=== PATIENT | male | born 1955 | race Caucasian/White ===

== ENCOUNTER 2025-08-21 12:18 | Emergency (ER) | payer MEDICARE, OTHER, SELFPAY ==
[2025-08-21 12:31] VITALS: BP 167/65; PULSE 66; O2SAT 97
--- NOTE | 2025-08-21 12:31 | XR_ITS ---
FINAL REPORT CLINICAL HISTORY: Left foot ax injury FINDINGS: LEFT FOOT Three views were obtained. There is no fracture or dislocation. The joint spaces appear normal. No soft tissue abnormality is identified. There is a bandage along the medial aspect of the foot. No foreign body is identified. IMPRESSION: No acute process. Reviewed, Interpreted and Dictated by Tunde Reyna MD Transcribed by Anna Fraire Authenticated and [facility]
[2025-08-21 12:34] VITALS: BP 167/65; PULSE 67; RESP 16; TEMP 36.7; O2SAT 98; BMI 30.5
--- NOTE | 2025-08-21 12:45 | ED_ITS ---
<Statement entered by Arben Robb DO - 08/22/25 07:23> I was consulted by the SHER, and we discussed the complexity of problems being addressed. I approved the treatment and management plan for this patient's care in the emergency department, thus performing a substantive portion of the medical decision making. Agree with SHER note above. I personally interpreted the patient's foot x-ray and I do not appreciate any bony abnormality or fracture. There is also no foreign body noted on my read. I have followed up the official radiology read and it also shows no acute fracture or malalignment. Patient was ultimately discharged home with Bactrim and Keflex given his risk factors. Return precautions have been given. He understands follow-up for suture removal. Arben Robb DO Discharge Plan Disposition Patient Disposition: Home, Self-Care Condition: Good Prescriptions Prescriptions: New sulfamethoxazole-trimethoprim [Bactrim DS] 800-160 mg tablet 1 tab PO BID 5 Days Qty: 10 0RF cephalexin 500 mg capsule 500 mg PO Q6H 5 Days Qty: 20 0RF Referrals Follow up/Referrals: Provider,Referral, MD [Primary Care Provider, Medical] - See instructions Activity Restrictions/Add. Instructions Additional Instructions/Restrictions: Please return to the emergency department with any worsening signs or symptoms. Please monitor for any signs of infection. We will call you with results of your x-ray if actionable. No news is good news. Please take your medications as prescribed for the next 5 days with food. Please return to the emergency department or to your family doctor's office for removal of your sutures in 7 to 10 days, please keep the area clean and dry. Clinical Impressions Clinical Impression: Laceration of dorsum of left foot Instructions Patient Instructions: DI for Laceration Repair Print Language Print Language: Setswana Discharge ED Provider: Arben Robb General Adult HPI General Chief complaint: Wound/Laceration Stated complaint: AO 08/21/25 @1100 Hit L Foot with Axe Time Seen by Provider: 08/21/25 12:25 Mode of Arrival: Ambulatory Source of Information: Patient Description of Symptoms (Recalled from ER Triage Doc. by RN): Patient presents to ED for laceration to left foot. Patient reports he was cutting wood with a dull axe. Bleeding controlled on ED arrival. History of Present Illness HPI narrative: 70-year-old male presents the emergency department with a left foot laceration/injury with sharp/blunt object, patient tells me that around 45 minutes to an hour prior to arrival he was chopping wood , with an ax, he describes it as a dull lax , he states he is wearing flip-flops , when he struck his left foot, sustaining a laceration to the dorsal medial aspect of the left foot, bleeding controlled upon arrival in the ED. Patient is unsure of tetanus prophylaxis, patient denies any fever chills chest pain shortness of breath, has been able to ambulate on the affected extremity, denies any other acute symptomatology. Patient is a former smoker, former alcohol use, denies any illicit drug use. 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 Initial triage vitals unremarkable. Please note that above description of symptoms, in this electronic medical record under categorization of recalled from ER triage doctor by RN are reflective of an initial nursing assessment, however, is not reflective of my full history and physical exam that was personally taken and clarified. Consequentially, this preceding description of symptoms, which may include the patient's categorized chief complaint in the EMR, do not reflect my personal clinical impression, and the ultimate description of history of present illness and patient stated complaints should be deferred to this section of the note. Unless stated otherwise or congruent with this section of the note, additional signs, symptoms, or incongruence should be interpreted as inaccurate with my clinical impression. Onset (ago): hour(s) Related Data Previous Rx's ?Medication ?Instructions ?Recorded cephalexin 500 mg capsule 500 mg PO Q6H 5 days #20 cap s 08/21/25 sulfamethoxazole 800 1 tab PO BID 5 days #10 tabs 08/21/25 mg-trimethoprim 160 mg tablet (Bactrim DS) Allergies Allergy/AdvReac Type Severity Reaction Status Date / Time empagliflozin (From Allergy Unknown Verified 08/21/25 12:53 Jardiance) allergy reaction [facility] Disclaimer: The information contained in this section may have been updated after the patient was seen, as this information can be updated by other users. Social History (Updated 08/21/25 @ 13:31 by MIMA Lauren) Smoking Status: Former smoker alcohol intake: former current occupational status: other Travel in the last 8 weeks?: None Have you lived/traveled outside US in past 30 days?: No Contact w/someone who lives/traveled outside US past 30 days?: No Exposure to someone with infectious disease in past 14 days?: No Do you have a fever (greater than 100.4 F or 38 C)?: No Have you tested positive for COVID-19?: No Exposed to someone with COVID-19 in past 14 days?: No Do you have a sore throat?: No Do you have a cough?: No Do you have any weakness?: No Do you have any diarrhea?: No Are you experiencing any unusual bleeding?: No Do you have any muscle aches/pain?: No Do you have any abdominal pain?: No Are you experiencing loss of taste or smell?: No ROS Obtained: Yes All systems reviewed & no additional complaints except as documented Physical Exam General General appearance: alert and in no apparent distress Head Head exam: atraumatic and normocephalic Eye Eye exam: Present PERRL and EOMI ENT ENT exam: Present mucous membranes moist Neck Neck exam: Present normal inspection Chest Chest inspection: Present normal inspection and symmetric chest wall rise Respiratory Respiratory exam: Present normal lung sounds bilaterally; Absent respiratory distress Cardiovascular Cardiovascular exam: Present regular rate and normal rhythm Abdominal Exam Abdominal exam: Present soft; Absent tenderness Extremities Exam Extremities exam: Present normal inspection Neurological Exam Neurological exam: Present alert and oriented X3 Psychiatric Psychiatric exam: Present normal affect Skin Skin exam: Present warm, dry and other (Small 2 to 3 cm laceration over the patient's dorsal medial aspect of the left foot no erythema, no evidence any wound dehiscence, no obvious open fracture, otherwise neurovascular intact, no obvious deformity.) Medical Decision Making Medical Records Medical records reviewed: Yes I reviewed the patient's medical records. Screening: Per USPSTF and CDC recommendations, given the prevalence of disease in our region, it is our hospital?s policy to screen for HIV and viral Hepatitis for all patients aged 18 and over and those with ongoing risk factors. Evelio Inquiry Pt receiving controlled substance: Yes Evelio was queried for this patient: No Reason not queried -: Emergent pt cond-no time Risks and benefits of using a controlled substance: were discussed with pt by me Vital Signs: 08/21/25 12:31 08/21/25 12:34 08/21/25 12:34 Temperature 98.0 F 98.0 F Temperature Source Oral Pulse Rate 66 67 Pulse Rate [Right] 67 Respiratory Rate 16 16 Blood Pressure 167/65 H 167/65 H Blood Pressure [Right Arm] 167/65 H Blood Pressure Mean [Right Arm] 99 02 Sat by Pulse Oximetry 97 98 98 08/21/25 13:00 08/21/25 13:31 Temperature 97.9 F Temperature Source Pulse Rate 63 64 Pulse Rate [Right] Respiratory Rate 18 Blood Pressure 140/64 148/66 H Blood Pressure [Right Arm] Blood Pressure Mean [Right Arm] 02 Sat by Pulse Oximetry 97 Orders (Tests/Meds): ED MEDICATIONS Discontinued Medications Generic Name Dose Route Start Last Admin Trade Name Freq PRN Reason Stop Dose Admin Hydrocodone Bitart/Acetaminophen 1 tab 08/21/25 12:33 08/21/25 12:54 Hydrocodone/Apap 5/325 Mg Tablet PO 08/21/25 12:34 1 tab ONCE ONE Administration Lidocaine HCl 10 ml 08/21/25 12:48 08/21/25 12:58 Lidocaine 1% 10ml Mdv IJ 08/21/25 12:49 10 ml ONCE ONE Administration Tetanus/Reduced Diphtheria/Acell Pertussis 0.5 ml 08/21/25 12:31 08/21/25 12:53 Tet/Diphth/Pert-Adult 0.5ml Syringe IM 08/21/25 12:32 0.5 ml .ONCE ONE Administration ORDERS Category Date Time Status XR foot LT min 3V Stat Exams 08/21/25 12:31 Completed Medical Decision Narrative: 70-year-old male presents the emergency department with a laceration to his left foot sustained by ax injury, differential diagnose include but not limited to, foot fracture, blunt injury to foot, laceration of foot, among others. I discussed this patient's case with the attending physician Dr. Robb, he saw the patient as well. Will update patient's tetanus prophylaxis here in the emergency department, give 5 mg p.o. [place] for pain as well as obtain x-ray of the left foot for further evaluation/characterization. Patient has no obvious open fracture or deformity, copiously irrigated the patient's wound with normal saline as well as Hibiclens. See procedure note for full details, after copious irrigation of the wound with normal saline and Betadine, I utilized 1% lidocaine, and locally anesthetized the patient's left foot wound, I used approximately 3 to 4 mL of lidocaine, patient tolerated well, I then performed simple interrupted suture technique utilizing 3 4-0 nylon sutures, patient tolerated well, bleeding was controlled, wound margins revitalized. I along with the attending physician reviewed the patient's x-ray, patient's left foot x-ray shows no acute bony abnormality, discussed with patient that the full radiology report is not yet available, patient would like to be discharged home to self-care, shared decision-making was utilized. Will call patient any actionable results. Patient given strict ED return precautions. Patient will follow-up in the PCPs office in the upcoming days/weeks, patient will need to have sutures removed in 7 to 10 days, patient voiced understanding and agreement with current treatment plan/discharge plan. Will send the patient home on dual coverage due to recent aortic valve replacement and history of type 2 diabetes as well as foot wound, will prescribe the patient Keflex 500 mg p.o. every 6 for 5 days as well as Bactrim twice daily for 5 days. Procedures Laceration Laceration 1: Site: foot Side (If applicable): left Size (cm): 3 Description: linear Depth: simple, single layer and involves subcutaneous layer Local Anesthetic: lidocaine 1% Amount of anesthesia used (mL): 4 Pre-repair: wound explored, irrigated extensively and deep structures intact Skin layer closed with: nylon Size (cm): 4-0 Number of sutures: 3 Technique: simple, interrupted Critical Care Critical Care Time Critical Care Time: No
[2025-08-21] MEDS: TET/DIPHTH/PERT-ADULT 0.5ML SYRINGE 0.5 ML IM (12:53)
[2025-08-21] MEDS: HYDROCODONE/APAP 5/325 MG TABLET 1 TAB PO (12:54)
--- OUTSIDE RECORDS SUMMARY | 2025-08-21 12:56 | XMS_ITS | Encounter Summary ---
Author Organization [facility] Address [address], [address] [place] [address] Care Team Providers Care Clinical Faculty Name Role Phone Unavailable Primary Care Provider Unavailabl e Reason for Referral * Imaging (Routine) - Pending Review Specialty Diagnoses / Procedures Referred By Contac t Referred To Contact Diagnoses Ischemic heart disease Procedures Echo (TTE) complete (PRN contrast/bubble/strain/3D) NV ECHO TTHRC R-T 2D W/WOM-MODE COMPL SPEC&COLR D NV TTE W OR WO FOL WCON,DOPPLER Enzo Grayson DO [address] [place] [address] Phone: tel: fax: Referral ID Status Reason Start Date Expiration Date V isits Requested Visits Authorized [id number] Pending Review 08/23/2024 08/23/2025 1 1 Encounter Details Date Type Department Care Team (Latest Contact Info) Description 08/23/2024 Transcribe Orders [facility] Pre Access [address] [place] [address] Enzo Grayson DO [id number] [place] [address] Ischemic heart disease (Primary Dx) Social History Tobacco Use Types Packs/Day Years Used Date Smoking Tobacco: Never Assessed Sex and Gender Information Value Date Recorded Sex Assigned at Not on file Legal Sex Male 8:26 AM EDT Gender Identity Not on file Sexual Orientation Not on file documented as of this encounter Plan of Treatment Scheduled Orders Name Type Priority Associated Diagnoses Orde r Schedule Echo (TTE) complete (PRN contrast/bubble/st rain/3D) CV Echocardiography Routine Ischemic heart disease Expected: 08/23/2024, Expires: 08/23/2025 documented as of this encounter Visit Diagnoses Diagnosis Ischemic heart disease- Primary Chronic ischemic heart disease, unspecified documented in this encounter
--- OUTSIDE RECORDS SUMMARY | 2025-08-21 12:56 | XMS_ITS | Clinical Summary ---
Author Organization [facility] 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 Name Role Phone Unavailable Primary Care Provider Unavailabl e Encounters Date Type Department Care Team Description 06/08/2025 8:35 AM EDT - 06/10/2025 11:59 PM EDT Hospital Encounter [facility] [address] [facility], [facility] [address] [place], [place] [id number] Atherosclerosis of coronary artery, unspecified vessel or lesion type, unspecified whether angina present, unspecified whether comanche or transplanted heart Discharge Disposition: Home or Self Care from Last 3 Months Social History Tobacco Use Types Packs/Day Years Used Date Smoking Tobacco: Never Assessed Sex and Gender Information Value Date Recorded Sex Assigned at Not on file Legal Sex Male 8:26 AM EDT Gender Identity Not on file Sexual Orientation Not on file Last Filed Vital Signs Vital Sign Reading Time Taken Comments Blood Pressure 126/78 06/08/2025 8:45 AM EDT Pulse - - Temperature - - Respiratory Rate - - Oxygen Saturation - - Inhaled Oxygen Concentration - - Weight 102.1 kg (225 lb) 06/08/2025 8:45 AM EDT Height 182.9 cm (6') 06/08/2025 8:45 AM EDT Body Mass Index 30.52 06/08/2025 8:45 AM EDT Plan of Treatment Health Maintenance Due Date Last Done Comments Depression Screen 1969 Hepatitis C screen 1975 DTaP/Tdap/Td vaccine (1 - Tdap) 1976 Diabetes screen 1992 Lipids 1997 Colonoscopy 2002 Colorectal Cancer Screen 2002 FIT/FOBT: Average risk 2002 Fecal-DNA (Cologuard): [place] ge risk 2002 Sigmoidoscopy/CT colonography 2002 Pneumococcal 50+ years Vacci ne (1 of 1 - PCV) 2007 Shingles vaccine (1 of 2) 2007 Flu vaccine (#1) 06/22/2025 08/14/2024, 08/16/2023, 10/19/2022 COVID-19 Vaccine (2 - 2024-2 6 season) 2025 05/06/2023 Respiratory Syncytial Virus (RSV) or age 60 yrs+ Completed 01/05/2025 Hepatitis A vaccine Aged Out No longe r eligible based on patient's age to complete this topic Hepatitis B vaccine Aged Out No longe r eligible based on patient's age to complete this topic Hib vaccine Aged Out No longer eligi ble based on patient's age to complete this topic Meningococcal (ACWY) vaccine Aged Out No longer eligible based on patient's age to complete this topic Meningococcal B vaccine Aged Out No l onger eligible based on patient's age to complete this topic Polio vaccine Aged Out No longer elig ible based on patient's age to complete this topic Procedures Procedure Name Priority Date/Time Associated Diagnosis Comments ECHO (TTE) COMPLETE Routine 06/08/2025 9:29 AM EDT Atherosclerosis of coronary artery, unspecified vessel or lesion type, unspecified whether angina present, unspecified whether comanche or transplanted heart from Last 3 Months Results * (ABNORMAL) ECHO (TTE) COMPLETE (06/08/2025 9:29 AM EDT) Body Surface Area 2.28 m2 [facility] LA Minor [place] 5.5 cm [facility] CV [facility]ACS LA Major [place] 6.2 cm [facility] LA Area 2C 20.1 cm2 [facility] LA Area 4C 17.6 cm2 [facility] CV CPACS LA Volume MOD A2C 59(A) 18 - 58 mL [facility] CV CPA CS LA Volume MOD A4C 39 18 - 58 mL [facility] CV CPA CS LA Volume BP 51 18 - 58 mL [facility] CV CPACS LA Diameter 4.3 cm [facility] CV [facility]ACS RA Area 4C 11.3 cm2 BS CV CPACS RA Volume 19 ml BS CV CPACS AV Mean Velocity 1.5 m/s BS CV CPACS AV Mean Gradient 11 mmHg BS CV CPACS AV VTI 49.4 cm BS CV CPACS AV Peak Velocity 2.3 m/s BS CV CPACS AV Peak Gradient 22 mmHg BS CV CPACS AV Area by VTI 1.4 cm2 BS CV CPACS AV Area by Peak Velocity 1.3 cm2 BS CV CPACS Aortic Root 3.2 cm BS CV CPACS Ascending Aorta 3.0 cm BS CV CPACS EF 3D 56 % BS CV CPACS LVOT SV 69.9 ml BS CV CPACS LV EDV 3D 132 mL BS CV CPACS LV ESV 3D 59 mL BS CV CPACS LV Mass 3D 133.0 g BS CV CPACS LV IVRT 74.0 ms BS CV CPACS IVSd 0.9 0.6 - 1.0 cm BS CV CPACS LVIDd 5.0 4.2 - 5.9 cm BS CV CPACS LVIDs 3.1 cm BS CV CPACS LVOT Diameter 2.1 cm BS CV CPACS LVOT Mean Gradient 2 mmHg BS CV CPACS LVOT VTI 20.2 cm BS CV CPACS LVOT Peak Velocity 0.9 m/s BS CV CPACS LVOT Peak Gradient 3 mmHg BS CV CPACS LVPWd 1.0 0.6 - 1.0 cm BS CV CPACS LV E' Lateral Velocity 7.94 cm/s BS CV [facility]ACS LV E' Septal Velocity 6.64 cm/s BS CV CPACS Global longitudinal strain -21.8 % BS CV CPACS LVOT Area 3.5 cm2 BS CV [facility]ACS MV E Wave Deceleration Time 275.0 ms BS CV [facility]ACS MV A Velocity 1.06 m/s BS CV [facility] MV E Velocity 0.79 m/s BS CV [facility]ACS RV Free Wall Peak S' 17.0 cm/s BS CV CPACS TAPSE 2.7 >=1.7 cm BS CV CPACS TR Max Velocity 2.12 m/s BS CV CPACS TR Peak Gradient 18 mmHg BS CV CPACS Fractional Shortening 2D 38 28 - 44 % BS CV [facility] LV ESV Index 3D 26 mL/m2 BS CV [facility]ACS LV EDV Index 3D 59 mL/m2 BS CV CPACS LVIDd Index 2.23 cm/m2 BS CV CPACS LVIDs Index 1.38 cm/m2 BS CV CPACS LV RWT Ratio 0.40 BS CV CPACS LV Mass 2D 169.9 88 - 224 g BS CV CPACS LV Mass 2D Index 75.9 49 - 115 g/m2 BS CV CPACS LV Mass Index 3D 59.4 g/m2 [facility] CV CPACS MV E/A 0.75 BS CV CPACS E/E' Ratio (Averaged) 10.92 BS CV CPACS E/E' Lateral 9.95 BS CV CPACS E/E' Septal 11.90 BS CV CPACS LA Volume Index BP 23 16 - 34 ml/m2 [facility] CV CPACS LVOT Stroke Volume Index 31.2 mL/m2 [facility] CV CPACS LA Volume Index MOD A2C 26 16 - 34 ml/m2 [facility] CV CPACS LA Volume Index MOD A4C 17 16 - 34 ml/m2 [facility] CV CPACS LA Size Index 1.92 cm/m2 [facility] CV CPACS LA/AO Root Ratio 1.34 BS CV CPACS RA Volume Index A4C 8 mL/m2 [facility] CV CPACS Ao Root Index 1.43 cm/m2 [facility] CV CPACS Ascending Aorta Index 1.34 cm/m2 [facility] CV CPACS AV Velocity Ratio 0.39 [facility] CV CPACS LVOT:AV VTI Index 0.41 [facility] CV CPACS LAMBERTO/BSA VTI 0.6 cm2/m2 [facility] CV CPACS LAMBERTO/BSA Peak Velocity 0.6 cm2/m2 [facility] CV CPACS Est. RA Pressure 3 mmHg [facility] CV CPACS RVSP 21 mmHg [facility] CV CPACS EF Physician 57 % BS CV CPACS EF BP 57 55 - 100 % BS CV CPACS Anatomical Region Laterality Modality Echocardiography Narrative 06/08/2025 12:29 PM EDT Image quality is adequate. Left Ventricle: Normal left ventricular systolic function with a visually estimated EF of 55 - 60%. EF by 2D Simpsons Biplane is 57%. Left ventricle size is normal. Normal wall thickness. Normal wall motion. Global longitudinal strain is normal. Grade I diastolic dysfunction with normal LAP. Right Ventricle: Right ventricle size is normal. Normal systolic function. TAPSE is normal. Aortic Valve: Aguilar S3 Resillia transcatheter bioprosthetic valve with a size of 26 mm. AV mean gradient is 11 mmHg. No regurgitation. No stenosis. AV Peak Gradient is 22 mmHg. AV Peak Velocity is 2.3 m/s. Normal valve function. Mitral Valve: Mild regurgitation. Tricuspid Valve: Trace regurgitation. RVSP may be underestimated in the setting of poor visualization of TR jet. RVSP is 21 mmHg. Pulmonic Valve: Mild regurgitation. Left Ventricle Normal left ventricular systolic function with a visually estimated EF of 55 - 60%. EF by 2D Simpsons Biplane is 57%. Left ventricle size is normal. Normal wall thickness. Normal wall motion. Global longitudinal strain is normal. Grade I diastolic dysfunction with normal LAP. Right Ventricle Right ventricle size is normal. Normal systolic function. TAPSE is normal. Left Atrium Left atrium size is normal. Right Atrium Right atrium size is normal. IVC/SVC IVC diameter is normal or and decreases greater than 50% during inspiration; therefore the estimated right atrial pressure is normal (~3 mmHg). IVC size is normal. Mitral Valve There is mild posterior annular calcification noted. Mild regurgitation. No stenosis noted. Tricuspid Valve Valve structure is normal. Trace regurgitation. No stenosis noted. RVSP may be underestimated in the setting of poor visualization of TR jet. RVSP is 21 mmHg. Aortic Valve Aguilar S3 Resillia transcatheter bioprosthetic valve with a size of 26 mm. AV mean gradient is 11 mmHg. No regurgitation. No stenosis. AV Peak Gradient is 22 mmHg. AV Peak Velocity is 2.3 m/s. Normal valve function. Pulmonic Valve Valve structure is normal. Mild regurgitation. No stenosis noted. Ascending Aorta Normal sized aortic root and ascending aorta. Pericardium No pericardial effusion. Study Details Image quality: adequate. No contrast was given. Enzo Grayson DO CV ECHO ORDERABLES F inal Result from Last 3 Months Insurance '[facility] Member Subscriber Plan / Payer (Ef fective 2025-Present) Name:Bobby Amin Relation to Subscriber:Self Name:Bobby Amin Payer ID:Not on file Group ID:Not on file Type:Not on file Address: [facility] [id number] [place] [id number]
--- OUTSIDE RECORDS SUMMARY | 2025-08-21 12:56 | XMS_ITS | Encounter Summary ---
Author Organization [facility] Address [address] [place] [address] [place] [address] Phone Care Team Providers Care Railway Head Tender Name Role Phone Ayanna Noriega CNP Primary Care Provider [phone] Reason for Referral * Cardiology Services (Routine) - [place] Authorized Specialty Diagnoses / Procedures Referred By Contac t Referred To Contact Cardiology Diagnoses Ischemic heart disease Procedures CD ECHO 2D DOPP AND COLOR FLOW Obed Mcdermott DO Phone: tel: fax: Referral ID Status Reason Start Date Expiration Date Visits Requested Visits Authorized [id number] [place] Authorized Specialty Services Required 4 09/21/2024 1 1 Encounter Details Date Type Department Care Team (Late st Contact Info) Description 08/29/2024 Orders Only [facility] Sched[facility] [address] [place] [address] Obed Mcdermott DO [address] [place] [address] Ischemic heart disease (Primary Dx) Social History Tobacco Use Types Packs/Day Years Used Date Smoking Tobacco: Never Assessed Utilities Answer Date Recorded Worried about losing home Not on file 2023 Stayed outside house Not on file 08/29/2024 Unable to get utilities Not on file 08/29/20 Sex and Gender Information Value Date Recorded Sex Assigned at Not on file Legal Sex Male 12:46 PM EDT Gender Identity Not on file Sexual Orientation Not on file documented as of this encounter Plan of Treatment Not on file documented as of this encounter Results * COMPLETE ECHO WITH COLOR AND DOPPLER (09/21/2024 9:14 AM EDT) Anatomical Region Laterality Modality Chest Color Flow Doppl er 09/21/2024 8:47 AM EDT Narrative 09/21/2024 12:35 PM EDT Cardiac Testing [facility] [address] [place] [address] Adult Echocardiogram Report Name: RICH AMIN : 1955 Age: 69 yrs EPI: [id number] Gender: Male Height: 72 in Weight: 225 lb Accession Number: [id number] Order Number: [id number] Patient Location: [facility] Study Date: 09/21/2024 08:47 AM Summary: Overall left ventricular ejection fraction is estimated to be 60-65%. Left ventricular wall motion is normal. A bioprosthetic prosthesis (TAVR valve) is present in the aortic valve position. Normal hemodynamics and function for this type of valve. Right ventricle is normal size. Right ventricular systolic function is normal. The estimated right ventricular systolic pressure is consistent with severe pulmonary hypertension. PASP = 57 mm Hg. Reason for Study: Veterans evaluation S/P TAVR 26mm. Procedure: 2D Echo with Doppler and color flow (17477). Left Ventricle: Overall left ventricular ejection fraction is estimated to be 60-65%. Normal left ventricular wall thickness. Left ventricle is normal in size. Left ventricular wall motion is normal. IVSd: 1.1 cm (0.6-1.1) LV Mass Index: 94.3 grams/m2 LVPWd: 1.1 cm (0.6-1.1) RWT: 0.42 cm LVIDd: 5.1 cm (3.6-6.0) Diastolic Function: Indeterminate diastolic function. MV E/A: 2.0 Lateral E/E': 12.5 Medial E/E': 14.9 Right Ventricle: Right ventricle is normal size. Right ventricular systolic function is normal. RVDd: 3.0 cm Left Atrium: Left atrial size is normal. LA dimension: 4.4 cm (2.1-3.7) Left Atrial Vol Index: 29.6 ml/m2 Apical 2 LA Area: 21.0 cm2 Apical 4 LA Area: 23.9 cm2 LA Volume Length: 6.4 cm Right Atrium: Right atrial size is normal. IVC size is dilated. IVC does not collapse >50% with respiration. RAP systole: 8.0 mmHg Mitral Valve: Mitral valve leaflets appear normal. No mitral regurgitation noted. No evidence of mitral valve prolapse. Mitral valve area by the pressure half-time method is 3.5 cm^2. No mitral valve stenosis. MV V2 max: 131.4 cm/sec MV V2 VTI: 31.1 cm MV max P.9 mmHg MVA(P1/2t): 3.5 cm2 MV mean P.0 mmHg MV P1/2t-pr_phl: 62.7 msec MVA(VTI): 4.8 cm2 MV P1/2t: 62.7 msec MV dec slope: 649.3 cm/sec2 Aortic Valve: No aortic regurgitation is present. Aortic valve peak gradient is 24.1 mmHg. Aortic valve mean gradient is 12.1 mmHg. Aortic valve area is 2.9 cm^2. No hemodynamically significant valvular aortic stenosis. Aortic max: 245.4 cm/sec SI(LVOT): 65.9 ml/m2 Ao max P.1 mmHg DVI: 0.56 Ao mean P.1 mmHg CO(LVOT): 24.7 l/min Ao V2 VTI: 50.1 cm LAMBERTO(I,D): 2.9 cm2 LAMBERTO(V,D): 2.6 cm2 LVOT diam: 2.6 cm LVOT area: 5.3 cm2 CI(LVOT): 11.0 l/min/m2 Aortic Root: Aortic root is normal size. Ao root diam: 2.9 cm Aortic Valve Prosthesis: A bioprosthetic prosthesis is present in the aortic valve position. V max is 2.3m/s. Normal hemodynamics and function for this type of valve. No evidence of paravalvular leak. Tricuspid Valve: Tricuspid valve is normal in structure and function. Trace tricuspid regurgitation is present. The estimated right ventricular systolic pressure is consistent with severe pulmonary hypertension. RVSP(TR): 55.4 mmHg Pulmonic Valve/Pulmonary Artery: Pulmonic valve is not well visualized. Mild pulmonic valvular regurgitation. PA max P.0 mmHg Pericardium: No pericardial effusion. No pleural effusion. Ordering Physician: OBED MCDERMOTT Referring Physician: OBED MCDERMOTT Performed By: DOMENICO Hui Melody This document is confidential medical information. Unauthorized disclosure or use of this information is prohibited by law. If you are not the intended recipient of this document,please advise us by calling immediately . Procedure Note Eric Berg MD - 09/21/2024 Cardiac Testing [facility] [address] [place] [address] Adult Echocardiogram Report Name: RICH AMIN : 1955 Age: 69 yrs EPI: [id number] Gender: Male Height: 72 in Weight: 225 lb Accession Number: [id number] Order Number: [id number] Patient Location: [facility] Study Date: 09/21/2024 08:47 AM Summary: Overall left ventricular ejection fraction is estimated to be 60-65%. Left ventricular wall motion is normal. A bioprosthetic prosthesis (TAVR valve) is present in the aortic valve position. Normal hemodynamics and function for this type of valve. Right ventricle is normal size. Right ventricular systolic function is normal. The estimated right ventricular systolic pressure is consistent withsevere pulmonary hypertension. PASP = 57 mm Hg. Reason for Study: Veterans evaluation S/P TAVR 26mm. Procedure: 2D Echo with Doppler and color flow ([id number]). Left Ventricle: Overall left ventricular ejection fraction is estimated to be 60-65%.Normal left ventricular wall thickness. Left ventricle is normal in size. Left ventricular wall motion is normal. IVSd: 1.1 cm (0.6-1.1) LV Mass Index: 94.3 grams/m2 LVPWd: 1.1 cm (0.6-1.1) RWT: 0.42 cm LVIDd: 5.1 cm (3.6-6.0) Diastolic Function: Indeterminate diastolic function. MV E/A: 2.0 Lateral E/E': 12.5 Medial E/E': 14.9 Right Ventricle: Right ventricle is normal size. Right ventricular systolic function isnormal. RVDd: 3.0 cm Left Atrium: Left atrial size is normal. LA dimension: 4.4 cm (2.1-3.7) Left Atrial Vol Index: 29.6 ml/m2 Apical 2 LA Area: 21.0 cm2 Apical 4 LA Area: 23.9 cm2 LA Volume Length: 6.4 cm Right Atrium: Right atrial size is normal. IVC size is dilated. IVC does not collapse>50% with respiration. RAP systole: 8.0 mmHg Mitral Valve: Mitral valve leaflets appear normal. No mitral regurgitation noted. No evidence of mitral valve prolapse. Mitral valve area by the pressurehalf-time method is 3.5 cm^2. No mitral valve stenosis. MV V2 max: 131.4 cm/sec MV V2 VTI: 31.1 cm MV max P.9 mmHg MVA(P1/2t): 3.5 cm2 MV mean P.0 mmHg MV P1/2t-pr_phl: 62.7 msec MVA(VTI): 4.8 cm2 MV P1/2t: 62.7 msec MV dec slope: 649.3 cm/sec2 Aortic Valve: No aortic regurgitation is present. Aortic valve peak gradient is 24.1mmHg. Aortic valve mean gradient is 12.1 mmHg. Aortic valve area is 2.9 cm^2.No hemodynamically significant valvular aortic stenosis. Aortic max: 245.4 cm/sec SI(LVOT): 65.9 ml/m2 Ao max P.1 mmHg DVI: 0.56 Ao mean P.1 mmHg CO(LVOT): 24.7 l/min Ao V2 VTI: 50.1 cm LAMBERTO(I,D): 2.9 cm2 LAMBERTO(V,D): 2.6 cm2 LVOT diam: 2.6 cm LVOT area: 5.3 cm2 CI(LVOT): 11.0 l/min/m2 Aortic Root: Aortic root is normal size. Ao root diam: 2.9 cm Aortic Valve Prosthesis: A bioprosthetic prosthesis is present in the aortic valve position. V maxis 2.3m/s. Normal hemodynamics and function for this type of valve. Noevidence of paravalvular leak. Tricuspid Valve: Tricuspid valve is normal in structure and function. Trace tricuspid regurgitation is present. The estimated right ventricular systolicpressure is consistent with severe pulmonary hypertension. RVSP(TR): 55.4 mmHg Pulmonic Valve/Pulmonary Artery: Pulmonic valve is not well visualized. Mild pulmonic valvularregurgitation. PA max P.0 mmHg Pericardium: No pericardial effusion. No pleural effusion. Electronically signed by: Eric Berg MD, [id number] on :35 PM Ordering Physician: OBED MCDERMOTT Referring Physician: OBED MCDERMOTT Performed By: DOMENICO Hui Melody This document is confidential medical information. Unauthorized disclosureor use of this information is prohibited by law. If you are not theintended recipient of this document,please advise us by calling [phone] . us bOed Mcdermott DO CARDO Final Resu lt documented in this encounter Visit Diagnoses Diagnosis Ischemic heart disease- Primary Chronic ischemic heart disease, unspecified Ischemic heart disease Chronic ischemic heart disease, unspecified documented in this encounter Care Teams Railway Head Tender Relationship Specialty Start Date End Date Ayanna Noriega CNP [address] [address] PCP - General 09/21/24 documented as of this encounter
--- OUTSIDE RECORDS SUMMARY | 2025-08-21 12:56 | XMS_ITS | Clinical Summary ---
Author Organization [facility] Address [facility] [place] [address] Care Team Providers Care Export Agent Name Role Phone Pcp, No Primary Care Provider [phone] Source Comments This information has been disclosed to you from confidential records protectedfrom disclosure by state law. You shall make no further disclosure of thisinformation without the specific, written, and informed release of theindividual to whom it pertains, or as otherwise permitted by law. A generalauthorization for the release of medical or other information is not sufficientfor the purposes of therelease of HIV test results or diagnoses. [id number] Allergies No known active allergies Medications CHOLECALCIFEROL, VITAMIN D3, ORAL Take 25 mcg by mouth daily. Active cyanocobalamin (VITAMIN B-12) 1000 MCG tablet Take 1 tablet (1,000 mcg total) by mouth daily. Active fenofibrate nanocrystallized (TRICOR) 145 MG tablet Take 1 tablet (145 mg total) by mouth daily. Active rosuvastatin (CRESTOR) 40 MG tablet Take 1 tablet (40 mg total) by mouth daily. Active SEMAGLUTIDE (WEIGHT LOSS) 2.4 MG/0.75 ML (GENERIC FOR WEGOVY) SUBCUTANEOUS PEN INJECTOR Inject 0.75 mLs (2.4 mg total) subcutaneously once a week. Active amLODIPine (NORVASC) 5 MG tablet Take 1 tablet (5 mg total) by mouth daily. 30 tablet 1 05/05/20 24 Active apixaban (ELIQUIS) 5 mg TabIndications:Post -op atrial fibrillation Take 1 tablet (5 mg total) by mouth 2 times a day. Indications: Post-op atrial fibrillation 120 tablet 1 06/05/20 24 Active Active Problems Problem Noted Date Diagnosed Date Status post transcatheter ao rtic valve replacement (TAVR) using bioprosthesis 04/26/2024 Well controlled type 2 diabetes mellitus 024 Essential (primary) hypertension 12/24/2015 Encounters Date Type Department Care Team Description 06/22/2025 Telephone [facility] Cardiology at [facility] [address] [facility] [address] [place] [address] Lana Gustafson RN 06/07/2025 Scanned Document [facility] Cardiology at [facility] [address] [place] [id number] Kadi Matos RN from Last 3 Months Social History Tobacco Use Types Packs/Day Years Used Date Smoking Tobacco: Former Cigars Smokeless Tobacco: Never Tobacco Cessation:Counseling Given: Not Answered Alcohol Use Standard Drinks/Week Comments Not Currently 0 (1 standard drink = 0.6 oz pur e alcohol) Utilities Answer Date Recorded In the past 12 months has [employer], gas, oil, or water [employer] threatened to shut off services in your home? No 04/25/2024 AUDIT-C Answer Date Recorded Q1: How often do you have a drink containing alcohol? Never 04/25/2024 Q2: How many drinks containi ng alcohol do you have on a typical day when you are drinking? Patient does not drink Q3: How often do you have si x or more drinks on one occasion? Never 04/25/2024 PHQ-2 Answer Date Recorded PHQ-2 Total Score 0 03/28/2025 Hunger Vital Sign Answer Date Recorded Within the past 12 months, y ou worried that your food would run out before you got the money to buy more. Never true 04/25/20 24 Within the past 12 months, t he food you bought just didn't last and you didn't have money to get more. Never true 04/25/2024 PRAPARE - Transportation Answer Date Re corded In the past 12 months, has l ack of transportation kept you from medical appointments or from getting medications? No 02/2024 In the past 12 months, has l ack of transportation kept you from meetings, work, or from getting things needed for daily living? No 04/25/2024 Housing Stability Vital Sign Answer Rhys e Recorded In the last 12 months, was t here a time when you were not able to pay the mortgage or rent on time? No 04/25/2024 In the past 12 months, how m any times have you moved where you were living? 0 04/25/2024 At any time in the past 12 m [facility], were you homeless or living in a chcf (including now)? No 04/25/2024 Yearly Questionnaire Answer Date Record ed Do you need any assistance w ith obtaining housing, meals, medication, transportation or medical equipment? No 03/28 Assistance needed for: Not on file 5 Yearly Questionnaire Answer Date Record ed Do you need any assistance w ith obtaining housing, meals, medication, transportation or medical equipment? No 03/28 Assistance needed for: Not on file 5 Yearly Questionnaire Answer Date Record ed Do you need any assistance w ith obtaining housing, meals, medication, transportation or medical equipment? No 03/28 Assistance needed for: Not on file Sex and Gender Information Value Date Recorded Sex Assigned at Not on file Legal Sex Male 9:09 AM EDT Gender Identity Not on file Sexual Orientation Not on file Last Filed Vital Signs Vital Sign Reading Time Taken Comments Blood Pressure 140/63 03/30/2025 1:29 PM EDT Pulse 68 03/30/2025 1:29 PM EDT Temperature 36.9 C (98.4 F) 04/26/2024 7:22 AM EDT Respiratory Rate 16 06/05/2024 3:22 PM EDT Oxygen Saturation 94% 03/30/2025 1:29 PM EDT Inhaled Oxygen Concentration 94% 03/30/2025 1 :29 PM EDT Weight 109.3 kg (241 lb) 03/30/2025 1:29 PM EDT Height 182.9 cm (6') 03/30/2025 1:29 PM EDT Body Mass Index 32.69 03/30/2025 1:29 PM EDT Plan of Treatment Health Maintenance Due Date Last Done Comments ASCVD Assessment 1955 Abnormal Colonoscopy Follow Up 1955 Hepatitis C Screening (MyChart) 1955 Lipid Panel 1955 Cologuard (FIT-DNA) 2002 Colonoscopy 2002 Colorectal Cancer Screening (MyChart) 2002 Stool Testing (gFOBT) 2002 Lung Cancer Screening 2007 Diabetic Eye Exam (MyChart) 04/26/2024 Urine Albumin/Creatinine Ratio 04/26/2024 Hemoglobin A1C Monitoring (MyChart) 10/20/2024 04/19/2024 Immunization: DTaP/Tdap/Td ( 3 - Td or Tdap) 01/09/2025 01/09/2015, 12/01/2012, 12/08/1991 Renal Function/GFR 04/26/2025 04/26/2024, 04/19/2024 Immunization: COVID-19 ( season) 2025 05/06/2023, 02/13/2021 Immunization: Influenza ([facility]) (#1) 07/23/2025 08/14/2024, 08/16/2023, 10/19/2022, Additional history exists Depression Screening 03/28/2026 03/28/2025, 04/05/20 24 Immunization: Pneumococcal Completed 07/01, 12/24/2015, 01/09/2015, Additional history exists Immunization: Zoster Completed 07/01/2022, 03/16/2022, 12/24/2015 Abdominal Aortic Aneurysm (A AA) Screening Completed 04/03/2024 Immunization: RSV (Adult) Completed 01/05/2025 Medical Devices Implanted Type Area Drag Out Man Device Identifier Shelf Expiration Date Model / Serial / Lot Valve Aor 26mm Wilmer 3 [facility] - [id number] Implanted:Qty: 1 on 04/25/[address] MD at [facility] Main Valves N/A: Heart [employer] 04/21/2026 [id number] / [id number] / Description:AORTIC VALVE = T AVR Procedures Procedure Name Priority Date/Time Associated Diagnosis Comments RENAL FUNCTION PANEL W/EGFR Routine 04/26/2024 4:04 AM EDT HEMOGLOBIN A1C Routine 04/19/2024 1:43 PM EDT Aortic valve stenosis, etiology of cardiac valve disease unspecified CT ANGIO ABDOMEN AND PELVIS W AND OR WO IV CONTRAST Routine 04/03/2024 3:03 PM EDT H/O aortic valve replacement from Last 3 Months or Most Recently Relevant to Health Maintenance Results * (ABNORMAL) Renal Function Panel w/EGFR (04/26/2024 4:04 AM EDT) Pathologist [facility] Sodium 139 133 - 146 mmol/L 04/26/2024 4:[address] [facility] Potassium 3.8 3.5 - 5.3 mmol/L 04/26/2024 4:[address] [facility] Chloride 105 98 - 110 mmol/L 04/26/2024 4:[address] [facility] CO2 25 21 - 33 mmol/L 04/26/2024 4:[address] [facility] Anion Gap 9 3 - 16 mmol/L 04/26/2024 4:[address] [facility] BUN 9 7 - 25 mg/dL 04/26/2024 4:[address] [facility] Creatinine 0.68 0.60 - 1.30 mg/dL 04/26/2024 4:[address] [facility] Glucose 131(H) 70 - 100 mg/dL 04/26/2024 4:[address] [facility] Calcium 8.7 8.6 - 10.3 mg/dL 04/26/2024 4:[address] [facility] Phosphorus 3.0 2.1 - 4.5 mg/dL 04/26/2024 4:[address] [facility] Albumin 3.9 3.5 - 5.7 g/dL 04/26/2024 4:[address] [facility] Osmolality, Calculated 288 278 - 305 mOsm/kg 04/26/2024 4:[address] [facility] EGFR >90 04/26/2024 4:[address] [facility] Comment: As of 2022, the estimated GFR is calculated using the 2020 Chronic Kidney Disease Epidemiology Collaboration (CKD-EPI) equation. In line with the NKF-ASN Task Force Recommendations, this equation does not include a coefficient for race. A single eGFR value is calculated for each patient. The reference interval is >60 mL/min/1.73m2. eGFR values greater than 90 will be reported as >90mL/min/1.73m2. Reference: Silvino C, William M, Rosemarie DC, Sam ND, Rj CA, Anusha LA, et al. A Unifying Approach for GFR Estimation: Recommendations of the NKF-ASN Task Force on Reassessing the inclusion of Race in Diagnosing Kidney Disease. Am J Kidney Dis. 2020. GFR is estimated using creatinine, age, and sex. Patient's values should be interpreted as a trend. Below 90 mL/min/1.73m2, the patient may have renal disease. For additional information: www.kidney.org Plasma 04/26/2024 4:04 AM EDT 04/26/2024 4:29 AM EDT Chad Roe MD LAB BLOOD ORDERABLES Final Resu lt [facility] [address] * (ABNORMAL) Hemoglobin A1c (04/19/2024 1:43 PM EDT) Hemoglobin A1C 6.8(H) 4.0 - 5.6 % 04/20/2024 1:52 PM EDT [facility] Comment: Hemoglobin A1c Interpretation Guidelines: Normal: <5.7% Prediabetes: 5.7-6.4% Diabetes: >6.4% Diagnosis requires two independent tests unless clinical diagnosis is clear. Some clinical conditions, particularly anemias and hemoglobinopathies, may interfere with the diagnostic accuracy of hemoglobin A1c. The recommended goal for diabetic glycemic control (Hemoglobin A1c <7.0%) should be individualized based on duration of diabetes, age/life expectancy, comorbid conditions, known CVD or advanced microvascular complications, hypoglycemia unawareness, and other individual patient considerations. Whole Blood 04/19/2024 1:43 PM EDT 04/19/2024 2:[address] MD LAB BLOOD ORDERABLES Final Resul t [facility] [address] [place] [id number], [facility] * CT Angio Abd-Pelvis W and or WO IV Contrast (04/03/2024 3:03 PM EDT) Anatomical Region Laterality Modality Abdomen, Pelvis Computed Tomogra phy 04/03/2024 2:48 PM EDT Impressions 04/03/2024 3:58 PM EDT IMPRESSION: Nonflow significant atherosclerotic disease without evidence of aneurysm or dissection involving the aorta or iliac arteries. Additional findings as above. Report Verified by: Alvina Rao MD at 04/03/2024 3:58 PM EDT Narrative 04/03/2024 3:58 PM EDT EXAM: CT ANGIO ABDOMEN AND PELVIS W AND OR WO IV CONTRAST INDICATION: H/O aortic valve replacement TECHNIQUE: CT angiography of the abdomen and pelvis was performed. Axial images were obtained with coronal and sagittal reconstructions. 3-D reconstructions and maximum intensity projection images were performed on a separate workstation. CONTRAST: 80 mL of IOHEXOL 350 MG IODINE/ML INTRAVENOUS SOLUTION administered intravenously FIELD OF VIEW: 42 cm COMPARISON: None available. FINDINGS: Lower chest: Chest CT results will be reported separately. Liver: Arterial phase imaging no focal hepatic lesions are seen. There is an accessory left hepatic artery and small replaced right hepatic artery. Biliary tree/Gallbladder: The gallbladder is normal. There is no biliary ductal dilation. Spleen: Normal in appearance. Pancreas: Normal. Adrenal glands: Normal. Kidneys/Ureters/Bladder: Kidneys enhance in a normal and symmetric fashion. No focal cortical lesions are seen. There is no hydronephrosis or nephrolithiasis. The urinary bladder is normal. Gastrointestinal tract: The stomach, and duodenum are normal. The small bowel and appendix are normal. There is mild diverticular disease involving the colon. Lymphatics: There is no measurable adenopathy. Vasculature: Nonflow significant atherosclerotic calcifications involve the aorta and iliac arteries. The external iliac arteries are normal in appearance. There is no evidence of dissection, or aneurysmal dilation. Ostial calcifications involve the mesenteric vasculature. The celiac artery enhances normally. Some nonatheromatous plaque involves the proximal SMA. The CHRISTINA is normal. There are single renal arteries present. Peritoneum/Retroperitoneum: There is no evidence of focal mass or fluid collection. Abdominal wall/soft tissues: Small fat-containing right inguinal hernia. Genital Organs: The prostate gland and seminal vesicles are normal. Osseous structures: Osteoporosis with no evidence of suspicious focal lesion. Procedure Note Alvina Rao MD - 04/03/2024 EXAM: CT ANGIO ABDOMEN AND PELVIS W AND OR WO IV CONTRAST INDICATION: H/O aortic valve replacement TECHNIQUE: CT angiography of the abdomen and pelvis was performed. Axialimages were obtained with coronal and sagittal reconstructions. 3-Dreconstructions and maximum intensity projection images were performed cleve separate workstation. CONTRAST: 80 mL of IOHEXOL 350 MG IODINE/ML INTRAVENOUS SOLUTIONadministered intravenously FIELD OF VIEW: 42 cm COMPARISON: None available. FINDINGS: Lower chest: Chest CT results will be reported separately. Liver: Arterial phase imaging no focal hepatic lesions are seen. There isan accessory left hepatic artery and small replaced right hepaticartery. Biliary tree/Gallbladder: The gallbladder is normal. There is no biliaryductal dilation. Spleen: Normal in appearance. Pancreas: Normal. Adrenal glands: Normal. Kidneys/Ureters/Bladder: Kidneys enhance in a normal and symmetricfashion. No focal cortical lesions are seen. There is no hydronephrosis ornephrolithiasis. The urinary bladder is normal. Gastrointestinal tract: The stomach, and duodenum are normal. The smallbowel and appendix are normal. There is mild diverticular diseaseinvolving the colon. Lymphatics: There is no measurable adenopathy. Vasculature: Nonflow significant atherosclerotic calcifications involvethe aorta and iliac arteries. The external iliac arteries are normal inappearance. There is no evidence of dissection, or aneurysmal dilation.Ostial calcifications involve the mesenteric vasculature. The celiacartery enhances normally. Some nonatheromatous plaque involves theproximal SMA. The CHRISTINA is normal. There are single renal arteriespresent. Peritoneum/Retroperitoneum: There is no evidence of focal mass or fluidcollection. Abdominal wall/soft tissues: Small fat-containing right inguinal hernia. Genital Organs: The prostate gland and seminal vesicles are normal. Osseous structures: Osteoporosis with no evidence of suspicious focallesion. IMPRESSION: Nonflow significant atherosclerotic disease without evidence of aneurysmor dissection involving the aorta or iliac arteries. Additional findings as above. Report Verified by: Alvina Rao MD at 04/03/2024 3:[address] MD IMG CT ORDERABLES Final Result from Last 3 Months or Most Recently Relevant to Health Maintenance Insurance [facility] MEDICARE A AND B Advance Directives For more information, please contact: [phone] * Full Code (Latest Code Status on File) Date Activated Date Inactivated Comments 04/25/2024 8:51 AM 04/26/2024 5:09 PM Care Teams Export Agent Relationship Specialty Start Date End Date Pcp, No No Address PCP - General 06/05/24
--- OUTSIDE RECORDS SUMMARY | 2025-08-21 12:56 | XMS_ITS | Encounter Summary ---
Author Organization [facility] Address [facility] [place] [address] Care Team Providers Care Computational Linguist Name Role Phone Pcp, No Primary Care Provider [phone] Source Comments This information has been disclosed to you from confidential records protectfrom disclosure by state law. You shall make no further disclosure of thisinformation without the specific, written, and informed release of theindividual to whom it pertains, or as otherwise permitted by law. A generalauthorization for the release of medical or other information is not sufficientfor the purposes of the release of HIV test results or diagnoses. [id number] Health Encounter Details Date Type Department Care Team (Late st Contact Info) Description 06/22/2025 Telephone [facility] Cardiology at [facility] [address] [facility] [address] [place] [address] Lana Gustafson RN Social History Tobacco Use Types Packs/Day Years Used Date Smoking Tobacco: Former Cigars Smokeless Tobacco: Never Alcohol Use Standard Drinks/Week Comments Not Currently 0 (1 standard drink = 0.6 oz pur e alcohol) Utilities Answer Date Recorded In the past 12 months has [employer], gas, oil, or water company threatened to shut off services in your [...] any time in the past 12 m [facility], were you homeless or living in a penitentiary (including now)? No 04/25/2024 Yearly Questionnaire Answer Date Record ed Do you need any assistance w ith obtaining housing, meals, medication, transportation or medical equipment? No 03/28 Assistance needed for: Not on file Yearly Questionnaire Answer Date Record ed Do you need any assistance w ith obtaining housing, meals, medication, transportation or medical equipment? No 03/28 Assistance needed for: Not on file Yearly Questionnaire Answer Date Record ed Do you need any assistance w ith obtaining housing, meals, medication, transportation or medical equipment? No 03/28 Assistance needed for: Not on file Sex and Gender Information Value Date Recorded Sex Assigned at Not on file Legal Sex Male 9:09 AM EDT Gender Identity Not on file Sexual Orientation Not on file documented as of this encounter Miscellaneous Notes * Telephone Encounter - Lana Gustafson RN - 06/22/2025 12:14 PM EDT Bobby Amin 1955 [id number] Pt seen for s/p TAVR procedure. Pt had Aguilar Wilmer 26 implanted on 04/25/2024. Pt reports generally feeling pretty good since having procedure. Patient lives at home NYHA: II get SOB when mowing the lawn, has to stop 1-2 times. Pt completed KCCQ-12, results as follows: The following questions refer to heart failure/valve disease and how it may effect your life. The answers indicate how much you are limited by heart failure/valve disease in your ability to do the following activities over the past 2 weeks. Results are as follows: Activity 1a. Showering/bathing - 5. Not at all Limited 1b.Walking 1 block on level ground - 4. Slightly Limited 1c Hurry or jogging - 2. Quite a bit Limited (as if to catch a bus) 2. How many times did you have swelling in your feet, ankles, or legs when you woke up in the morning? - 5. Never over the past 2 weeks 3. How many times has fatigue limited your ability to do what you wanted? - 7. Never over the past 2 weeks 4. How many times has shortness of breath limited your ability to do what you wanted? - 6. Less than once a week 5. How many times have you been forced to sleep sitting up in a chair or with at least 3 pillows toprop you up because of shortness of breath? - 5. Never over the past 2 weeks 6. How much has your heart failure limited your enjoyment of life? - 4. It has slightly limited my enjoyment of life 7. If you had to spend the rest of your life with your heart failure the way it is right now, how would you feel about this? - 3. Somewhat satisfied 8. How much does your heart failure affect your lifestyle. Please indicate how your heart failure may have limited your participation in the following activites. a. Hobbies, recreational activities - 5. Did not limit at all b. Working or doing evp - 4. Slightly limited c. Visiting family of friends out of your home - 5. Did not limit at all Please do not hesitate to call with any questions. Thank you. He tells me he has follow up with cardiology at the [facility] in the next 2 weeks. documented in this encounter Plan of Treatment Not on file documented as of this encounter Visit Diagnoses Not on filedocumented in this encounter Additional Health Concerns Assessment Noted Time A Body Mass Index follow-up plan has been documented for the patient 04/09/2025 12:55 PM EDT documented as of this encounter Care Teams Computational Linguist Relationship Specialty Start Date End Date Pcp, No No Address PCP - General 06/05/24 documented as of this encounter
--- OUTSIDE RECORDS SUMMARY | 2025-08-21 12:56 | XMS_ITS | Clinical Summary ---
Author Organization [facility] Address [facility] [address] [place] [address] Care Team Providers Care Supplier Quality Manager Name Role Phone Ayanna Noriega [employer] COMMISSIONER Primary Care Provider [phone] Social History Tobacco Use Types Packs/Day Years Used Date Smoking Tobacco: Never Assessed Utilities Answer Date Recorded Worried about losing home Not on file 2023 Stayed outside house Not on file 08/29/2024 Unable to get utilities Not on file 08/29/20 24 Sex and Gender Information Value Date Recorded Sex Assigned at Not on file Legal Sex Male 12:46 PM EDT Gender Identity Not on file Sexual Orientation Not on file Plan of Treatment Health Maintenance Due Date Last Done Comments Hepatitis C Screening 1955 Colonoscopy 2002 PSA YEARLY 2007 RSV Vaccine (60+ or ) (1 - Risk 60-74 years 1-dose series) 2017 DTap,Tdap,and Td (3 - Td or Tdap) 01/09/2025 01/09/2015, 12/01/2012 Influenza Vaccine (#1) 2025 , 08/16/2023, 10/19/2022, Additional history exists Meningococcal conjugate valent 4 (MCV4) Aged Out 08/02/1996 No longer eligible based on patient's age to complete this topic Pneumococcal 50+ Completed 07/01/2022, 12/2015, 01/09/2015, Additional history exists Shingrix Completed 07/01/2022, 03/16/2022 HPV Aged Out No longer eligi ble based on patient's age to complete this topic RSV Immunization (<20 months) Aged Out No longer eligible based on patient's age to complete this topic Insurance [place] [id number] [facility] [place]IA Babb [id number] Care Teams Supplier Quality Manager Relationship Specialty Start Date End Date Ayanna Noriega, [employer]ILRO[employer] COMMISSIONER [address] [address] PCP - General 09/21/24
[2025-08-21] MEDS: LIDOCAINE 1% 10ML MDV 10 ML IJ (12:58)
[2025-08-21 13:00] VITALS: BP 140/64; PULSE 63; O2SAT 97
--- NOTE | 2025-08-21 13:23 | PC.NURSE ---
laceration repaired by Wes Piña PA-C. 3 sutures placed
[2025-08-21 13:31] VITALS: BP 148/66; PULSE 64; RESP 18; TEMP 36.6; O2SAT 96
== END 2025-08-21 13:42 | disposition home or self-care (01) ==
PROVIDERS: Emergency Provider Student in an Organized Health Care Education/Training Program
DX: S91.312A Laceration without foreign body, left foot, initial encounter (principal); E11.9 Type 2 diabetes mellitus without complications; W27.0XXA Contact with workbench tool, initial encounter
CPT/HCPCS: 12002; 73630; 90471; 90715; 99284; J2003